=== PATIENT | female | born 1955 | race Caucasian/White ===

== ENCOUNTER 2016-07-10 18:16 | Inpatient (IN) | payer BC, OTHER ==
[2016-07-10] MEDS ORDERED: NS 0.9% 1000 ML* 1,000 ML IV ONE ×2 (19:19→22:12)
[2016-07-10] MEDS ORDERED: Acetaminophen TAB* 325 MG PO ONE ×2 (19:19→22:12)
[2016-07-10] MEDS ORDERED: Piperac/Tazob 3.375 gm in NS* 3.375 GM/100 ML BAG IVPB ONE (19:20)
[2016-07-10 19:38] LABS: Urine Bacteria Absent (Absent); Urine Bilirubin Negative (Negative); Urine Glucose Negative (Negative); Urine Nitrite Negative (Negative)
[2016-07-10 19:43] LABS: Hematocrit 41 % (35-47); Hemoglobin 13.6 g/dl (12.0-16.0); Mean Corpuscular HGB Conc 33 g/dl (31-36); Mean Corpuscular Hemoglobin 29 pg (27-31); Mean Corpuscular Volume 88 fL (80-97); Mean Platelet Volume 8 um3 (7.4-10.4); Red Blood Count 4.63 10^6/ul (4.0-5.4); Red Cell Distribution Width 13 % (10.5-15); White Blood Count 16.1 10^3/ul (3.5-10.8)
--- NOTE | 2016-07-10 19:52 | RAD ---
INDICATION: Fever COMPARISON: None TECHNIQUE: An AP portable view obtained at 1940 hours is submitted. FINDINGS: Bones/Soft Tissues: There are no acute bony findings. Cardiomediastinal: The cardiomediastinal silhouette is normal. Lungs: There are no infiltrates. Pleura: There are no pleural effusions. Other: None IMPRESSION: NO ACTIVE DISEASE.
[2016-07-10 20:00] LABS: Albumin 5.1 g/dL (3.2-5.2); BUN/Creatinine Ratio 14.3 (8-20); Calcium 10.3 mg/dL (8.6-10.3); EGFR African American 109.8 (>60); EGFR Non-African American 85.4 (>60); Globulin 3.1 g/dL (2-4); Potassium 3.4 mmol/L (3.5-5.0); Total Bilirubin 1.2 mg/dL (0.2-1.0); Total Protein 8.2 g/dL (6.4-8.9)
[2016-07-10 20:38] LABS: C Reactive Protein 29.91 mg/L (< 5.00)
[2016-07-10 22:01] LABS: Urine Bacteria Absent (Absent); Urine Bilirubin Negative (Negative); Urine Glucose Negative (Negative); Urine Nitrite Negative (Negative)
[2016-07-10] MEDS ORDERED: Ondansetron INJ* 2 MG/ML VIAL IV ONE (22:59)
[2016-07-10] MEDS ORDERED: Ketorolac INJ* 30 MG/ML 1 ML VIAL IV PUSH ONE (22:59)
[2016-07-10] MEDS ORDERED: NS 0.9% 1000 ML* 1,000 ML IV SCH (23:00)
[2016-07-10] MEDS ORDERED: oxyCODONE/Acetamin 5/325 MG* TAB PO ONE ×2 (23:18)
--- NOTE | 2016-07-10 23:20 | ED ---
Christiano Atowod Billy, scribed for Oscar Bermudez MD on 07/10/16 at 1918 . Complex/Multi-Sys Presentation - HPI Summary HPI Summary: Patient is a 61 year-old female coming to [facility] presenting with fever TMax 102F today. She also reports chills and diffuse myalgia. She had nausea without vomiting last night. Patient also reports passing a kidney stone this morning. - History Of Current Complaint Chief Complaint: EDGeneral Time Seen by Provider: 07/10/16 19:08 Hx Obtained From: Patient Onset/Duration: Gradual Onset, Lasting Hours, Still Present Timing: Constant Severity Currently: Moderate Severity Initially: Moderate Aggravating Factor(s): n/a Alleviating Factor(s): n/a Associated Signs And Symptoms: Positive: Fever, Other - diffuse myalgia, chills - Allergies/Home Medications Allergies/Adverse Reactions: Allergies Allergy/AdvReac Type Severity Reaction Status Date / Time Adhesive Tape Allergy Rash Verified 07/10/16 19:11 SEASONAL ALLERGY Allergy ITCHY Uncoded 07/10/16 19:11 WATERY EYES PMH/Surg Hx/FS Hx/Imm Hx Cardiovascular History: Reports: Hx Hypertension - STATES BORDERLINE History: Reports: Hx Kidney Stones - 35 yrs ago Musculoskeletal History: Reports: Hx Tendonitis - RIGHT ELBOW Sensory History: Reports: Hx Cataracts - BILATERAL, Hx Contacts or Glasses - GLASSES Denies: Hx Hearing Aid Opthamlomology History: Reports: Hx Cataracts - BILATERAL, Hx Contacts or Glasses - GLASSES Psychiatric History: Reports: Hx Anxiety - PRN MEDICATION FOR - Cancer History Hx Chemotherapy: No Hx Radiation Therapy: No - Surgical History Surgery Procedure, Year, and Place: SURGERY FOR KIDNEY STONE-1978. [place] [place] WISDOM TEETH EXTRACTION-1980 Hx Anesthesia Reactions: No - Immunization History Date of Tetanus Vaccine: unk Date of Influenza Vaccine: unk Infectious Disease History: No Infectious Disease History: Denies: Traveled Outside the [place] in Last 30 Days - Family History Known Family History: Positive: Hypertension - Social History Alcohol Use: Occasionally Substance Use Type: Reports: None Smoking Status (MU): Never Smoked Tobacco Have You Smoked in the Last Year: No Review of Systems Positive: Fever, Chills Positive: Nausea Positive: Myalgia All Other Systems Reviewed And Are Negative: Yes Physical Exam - Summary Physical Exam Summary: VITAL SIGNS: Reviewed. GENERAL: Patient is a well developed and nourished female who is lying comfortable in the stretcher. Patient is not in any acute respiratory distress. HEAD AND FACE: No signs of trauma. No ecchymosis, hematomas or skull depressions. No sinus tenderness. EYES: PERRLA, EOMI x 2, No injected conjunctiva, no nystagmus. EARS: Hearing grossly intact. Ear canals and tympanic membranes are within normal limits. MOUTH: Oropharynx within normal limits. NECK: Supple, trachea is midline, no adenopathy, no JVD, no carotid bruit, no c- spine tenderness, neck with full ROM. CHEST: Symmetric, no tenderness at palpation LUNGS: Clear to auscultation bilaterally. No wheezing or crackles. CVS: Regular rate and rhythm, S1 and S2 present, no murmurs or gallops appreciated. ABDOMEN: Soft, non-tender. No signs of distention. No rebound no guarding, and no masses palpated. Bowel sounds are normal. EXTREMITIES: FROM in all major joints, no edema, no cyanosis or clubbing. NEURO: Alert and oriented x 3. No acute neurological deficits. Speech is normal and follows commands. SKIN: Dry and warm Triage Information Reviewed: Yes Vital Signs On Initial Exam: Initial Vitals Temp Pulse Resp BP Pulse Ox 99.4 F 96 14 150/72 100 07/10/16 18:18 07/10/16 18:18 07/10/16 18:18 07/10/16 18:18 07/10/16 18:18 Vital Signs Reviewed: Yes - Garrison Coma Scale Coma Scale Total: 15 Diagnostics - Vital Signs Vital Signs Temp Pulse Resp BP Pulse Ox 07/10/16 18:18 99.4 F 96 14 150/72 100 - Laboratory Lab Results: Lab Results 07/10/16 07/10/16 07/10/16 Range/Units 19:15 19:30 19:30 WBC 16.1 H (3.5-10.8) 10^3/ul RBC 4.63 (4.0-5.4) 10^6/ul Hgb 13.6 (12.0-16.0) g/dl Hct 41 (35-47) % MCV 88 (80-97) fL MCH 29 (27-31) pg MCHC 33 (31-36) g/dl RDW 13 (10.5-15) % Plt Count 222 (150-450) 10^3/ul MPV 8 (7.4-10.4) um3 Neut % (Auto) 90.7 H (38-83) % Lymph % (Auto) 5.6 L (25-47) % Amelia % (Auto) 3.3 (1-9) % Eos % (Auto) 0.2 (0-6) % Baso % (Auto) 0.2 (0-2) % Absolute Neuts (auto) 14.6 H (1.5-7.7) 10^3/ul Absolute Lymphs (auto) 0.9 L (1.0-4.8) 10^3/ul Absolute Monos (auto) 0.5 (0-0.8) 10^3/ul Absolute Eos (auto) 0 (0-0.6) 10^3/ul Absolute Basos (auto) 0 (0-0.2) 10^3/ul Absolute Nucleated RBC 0 10^3/ul Nucleated RBC % 0 INR (Anticoag Therapy) 1.08 (0.89-1.11) APTT 30.6 (26.0-36.3) seconds Fibrinogen 429 H (110.8-404.3) mg/dL Sodium (133-145) mmol/L Potassium (3.5-5.0) mmol/L Chloride (101-111) mmol/L Carbon Dioxide (22-32) mmol/L Anion Gap (2-11) mmol/L BUN (6-24) mg/dL Creatinine (0.51-0.95) mg/dL Est GFR ( Amer) (>60) Est GFR (Non-Af Amer) (>60) BUN/Creatinine Ratio (8-20) Glucose (70-100) mg/dL Lactic Acid (0.5-2.0) mmol/L Calcium (8.6-10.3) mg/dL Total Bilirubin (0.2-1.0) mg/dL AST (13-39) U/L ALT (7-52) U/L Alkaline Phosphatase (34-104) U/L Troponin I (<0.04) ng/mL C-Reactive Protein (< 5.00) mg/L B-Natriuretic Peptide ( - 100) pg/mL Total Protein (6.4-8.9) g/dL Albumin (3.2-5.2) g/dL Globulin (2-4) g/dL Albumin/Globulin Ratio (1-3) Urine Color Straw Urine Appearance Clear Urine pH 7.0 (5-9) Ur Specific Carlisle 1.006 L (1.010-1.030) Urine Protein Negative (Negative) Urine Ketones 1+ H (Negative) Urine Blood 2+ H (Negative) Urine Nitrate Negative (Negative) Urine Bilirubin Negative (Negative) Urine Urobilinogen Negative (Negative) Ur Leukocyte Esterase 2+ H (Negative) Urine WBC (Auto) 2+(11-20/hpf) H (Absent) Urine RBC (Auto) 1+(3-5/hpf) H (Absent) Ur Squamous Epith Cells Present H (Absent) Urine Bacteria Absent (Absent) Urine Glucose Negative (Negative) 07/10/16 07/10/16 07/10/16 Range/Units 19:30 19:30 19:30 WBC (3.5-10.8) 10^3/ul RBC (4.0-5.4) 10^6/ul Hgb (12.0-16.0) g/dl Hct (35-47) % MCV (80-97) fL MCH (27-31) pg MCHC (31-36) g/dl RDW (10.5-15) % Plt Count (150-450) 10^3/ul MPV (7.4-10.4) um3 Neut % (Auto) (38-83) % Lymph % (Auto) (25-47) % Amelia % (Auto) (1-9) % Eos % (Auto) (0-6) % Baso % (Auto) (0-2) % Absolute Neuts (auto) (1.5-7.7) 10^3/ul Absolute Lymphs (auto) (1.0-4.8) 10^3/ul Absolute Monos (auto) (0-0.8) 10^3/ul Absolute Eos (auto) (0-0.6) 10^3/ul Absolute Basos (auto) (0-0.2) 10^3/ul Absolute Nucleated RBC 10^3/ul Nucleated RBC % INR (Anticoag Therapy) (0.89-1.11) APTT (26.0-36.3) seconds Fibrinogen (110.8-404.3) mg/dL Sodium 138 (133-145) mmol/L Potassium 3.4 L (3.5-5.0) mmol/L Chloride 99 L (101-111) mmol/L Carbon Dioxide 28 (22-32) mmol/L Anion Gap 11 (2-11) mmol/L BUN 10 (6-24) mg/dL Creatinine 0.70 (0.51-0.95) mg/dL Est GFR ( Amer) 109.8 (>60) Est GFR (Non-Af Amer) 85.4 (>60) BUN/Creatinine Ratio 14.3 (8-20) Glucose 116 H (70-100) mg/dL Lactic Acid 1.8 (0.5-2.0) mmol/L Calcium 10.3 (8.6-10.3) mg/dL Total Bilirubin 1.20 H (0.2-1.0) mg/dL AST 17 (13-39) U/L ALT 13 (7-52) U/L Alkaline Phosphatase 63 (34-104) U/L Troponin I 0.00 (<0.04) ng/mL C-Reactive Protein 29.91 H (< 5.00) mg/L B-Natriuretic Peptide 73 ( - 100) pg/mL Total Protein 8.2 (6.4-8.9) g/dL Albumin 5.1 (3.2-5.2) g/dL Globulin 3.1 (2-4) g/dL Albumin/Globulin Ratio 1.6 (1-3) Urine Color Urine Appearance Urine pH (5-9) Ur Specific Carlisle (1.010-1.030) Urine Protein (Negative) Urine Ketones (Negative) Urine Blood (Negative) Urine Nitrate (Negative) Urine Bilirubin (Negative) Urine Urobilinogen (Negative) Ur Leukocyte Esterase (Negative) Urine WBC (Auto) (Absent) Urine RBC (Auto) (Absent) Ur Squamous Epith Cells (Absent) Urine Bacteria (Absent) Urine Glucose (Negative) Result Diagrams: 07/10/16 19:30 07/10/16 19:30 Lab Statement: Any lab studies that have been ordered have been reviewed, and results considered in the medical decision making process. - Radiology CXR Xray Interpretation: No Acute Changes Radiology Interpretation Completed By: Radiologist Re-Evaluation - Re-Evaluation First Eval Re-Evaluation Time: 22:55 Comment: Labs and imaging reviewed and discussed with the patient. Plan for admission discussed, she is agreeable. Complex Multi-Symp Course/Dx Assessment/Plan: Patient is a 61 year-old female coming to [facility] presenting with fever TMax 102F today. She also reports chills and diffuse myalgia. She had nausea without vomiting last night. Patient also reports passing a kidney stone this morning. Bloodwork WNL except for WBC of 16.1, potassium of 3.4, CRP of 29.9. We obtained 2 samples for urine, and they were both contaminated. Therefore, I requested urine cultures. Meanwhile she was given IV fluids, started on Zosyn for SIRS and UTI and she was given Tylenol since she developed fever here in the ER. I discussed my physical exam findings with Dr. Lopez who accepted the patient for admission. She is hemodynamically stable, A&Ox3. - Diagnoses Differential Diagnoses/HQI/PQRI: Urinary Tract Infection Provider Diagnoses: SIRS (systemic inflammatory response syndrome), UTI vs Pyelonephritis - Physician Notifications Discussed Care Of Patient With: Dr. Lopez (hospitalist) @ 2250: accepts admission. Discharge - Discharge Plan Condition: Stable Disposition: ADMITTED TO [facility] Referrals: Bryant Sykes MD [Primary Care Provider] - The documentation as recorded by the Christiano anderson Billy accurately reflects the service I personally performed and the decisions made by me, Oscar Bermudez MD.
[2016-07-11] MEDS ORDERED: Acetaminophen SUPP* 650 MG SUPP PR PRN (00:13)
[2016-07-11] MEDS ORDERED: NS 0.9% 1000 ML* 1,000 ML IV SCH ×2 (00:15→09:54)
[2016-07-11] MEDS: Piperac/Tazob 3.375 gm in NS* 3.375 GM/100 ML BAG IVPB SCH ×2 (01:47→08:38)
[2016-07-11] MEDS: Ondansetron INJ* 2 MG/ML VIAL IV PRN ×2 (05:29→14:53)
[2016-07-11] MEDS: Heparin VIAL(*) 5000 UNITS/ML VIAL (FIVE THOUSAND) SUBCUT SCH ×3 (06:00→21:50)
[2016-07-11] MEDS ORDERED: ALPRAZolam TAB* 0.5 MG PO ONE (06:00)
[2016-07-11 07:01] LABS: Hematocrit 32 % (35-47); Hemoglobin 10.8 g/dl (12.0-16.0); Mean Corpuscular HGB Conc 34 g/dl (31-36); Mean Corpuscular Hemoglobin 30 pg (27-31); Mean Corpuscular Volume 88 fL (80-97); Mean Platelet Volume 8 um3 (7.4-10.4); Red Cell Distribution Width 13 % (10.5-15); White Blood Count 14.7 10^3/ul (3.5-10.8)
[2016-07-11] MEDS ORDERED: NS 0.9% 1000 ML* 1,000 ML IV ONE (08:31)
[2016-07-11] MEDS: Cholecalciferol TAB* 1000 UNITS PO SCH (08:41)
[2016-07-11] MEDS: Acetaminophen TAB* 325 MG PO PRN ×3 (08:41→22:49)
[2016-07-11] MEDS: Metoprolol Succinate XL TAB* 25 MG PO SCH (08:42)
[2016-07-11] MEDS ORDERED: Hydrochlorothiazide TAB* 25 MG PO SCH (09:00)
[2016-07-11] MEDS ORDERED: Metoprolol Succinate XL TAB* 25 MG PO SCH (09:00)
--- NOTE | 2016-07-11 10:29 | RAD ---
INDICATION: Sepsis. Obstruction. Appendicitis COMPARISON: None TECHNIQUE: Longitudinal and transverse scans of the kidneys were obtained. FINDINGS: Kidneys: The kidneys are normal in size and echogenicity. No renal masses, calculi, or hydronephrosis is seen. The right kidney measures 13.3 x 5.1 x 4.3 cm and the left kidney 11.3 x 4.3 x 4.3 cm. Other: None IMPRESSION: NORMAL STUDY.
[2016-07-11] MEDS: NS 0.9% 1000 ML* 2,000 ML IV ONE ×2 (12:06→12:53)
--- NOTE | 2016-07-11 12:59 | HP ---
HISTORY AND PHYSICAL: DATE OF ADMISSION: 07/11/16 CHIEF COMPLAINT: Fever and chills. HISTORY OF PRESENT ILLNESS: The patient is a 61-year-old woman, who said that last night she had severe pain in her right side, which was unbearable. She has had many kidney stones and dealing with this. She was pacing the floor, and at about midnight, the pain symptom let up and she was able to sleep. At 10 a.m. this morning, she got up and passed a kidney stone, so she thought she was over the problem. However, subsequent to that, she has developed fevers and chills. She had no other symptoms, but states that this is similar to when she was septic from an urinary tract infection in the past. She denies any burning on urination. She did have some nausea and vomiting. In the ED, the patient was found to have a temperature of 103.8 degrees. The patient had no chest pain, shortness of breath, or abdominal pain. PAST MEDICAL HISTORY: Significant for: 1. Kidney stones. 2. Palpitations. PAST SURGICAL HISTORY: Surgery to remove the kidney stones years ago, lithotripsy 2 years ago. CURRENT MEDICATIONS: 1. Hydrochlorothiazide 25 mg daily. 2. Metoprolol succinate 25 mg in the morning. 3. Vitamin D 1000 units daily. 4. Tylenol 500 mg daily. FAMILY HISTORY: Mother at 90 of CHF. Father is alive at 96 and has diabetes. SOCIAL HISTORY: No tobacco, alcohol, or recreational drug use. She is retired. She is . Her Andi Sousa is her healthcare proxy. She has one son. REVIEW OF SYSTEMS: A 14-point review of systems is completed with the patient. All pertinent positives and negatives are in the history of present illness, otherwise, negative. PHYSICAL EXAMINATION GENERAL: A pleasant woman lying in bed in no acute distress. VITAL SIGNS: Temperature 98.6 degrees at this time, T-max 103.8, heart rate 107 beats per minute, respiratory rate 20 breaths per minute, pulse ox 98% on room air, blood pressure 112/60. HEENT: Normocephalic, atraumatic. Pupils are equal, round, and reactive to light. Moist mucous membranes. NECK: Supple. No JVD, bruits, palpable thyroid, or lymphadenopathy. LUNGS: Clear to auscultation and percussion bilaterally. HEART: S1 and S2 appreciated. Regular rate and rhythm. No murmurs, gallops, or rubs. ABDOMEN: Positive bowel sounds in all 4 quadrants. Soft, nontender, and nondistended. No hepatosplenomegaly. EXTREMITIES: No cyanosis, clubbing, or edema. +2 peripheral pulses bilaterally. NEUROLOGIC: Alert and oriented x3. Moves all extremities. SKIN: No distinct rashes or abnormalities. DIAGNOSTIC STUDIES/LAB DATA: White count is 16.1, hemoglobin 13.6, hematocrit 41, platelets 222, absolute neutrophils 14.6. Sodium 138, potassium 3.4, chloride 99, CO2 of 28, BUN 10, creatinine 0.70, glucose 116, CRP 29.91. UA shows +2 leukocyte esterase, +2 wbc's. Influenza is negative. Chest x-ray was interpreted by Radiology as no active disease. ASSESSMENT AND PLAN: 1. Likely pyelonephritis. The patient has already passed a stone. Start Zosyn 3.375 mg IV with infusion protocol. Normal saline 100 mL an hour. The patient should hopefully rapidly improved. 2. Hypertension. Stable. Continue hydrochlorothiazide and metoprolol. 3. Fluids, electrolytes, nutrition. Regular diet. 4. Deep venous thrombosis prophylaxis. Heparin subcu. 5. The patient is a full code. TIME SPENT: Over 75 minutes were spent on this H and P; more than 40 minutes of which were spent in direct [id number] contact with the patient in evaluation, physical exam, counseling, and coordination of care. CC: Dr. Sykes; Dr. Fernandez * [id number]/CPS #: [id number] MTDD
[2016-07-11] MEDS: Morphine INJ* 2 MG/ML 1 ML CARPUJECT IV PRN ×2 (14:15→22:53)
--- NOTE | 2016-07-11 14:39 | PN ---
Subjective Date of Service: 07/11/16 Interval History: HOSPITALIST PROGRESS NOTE Patient seen and examined at bedside. She was seen earlier today and re-evaluated now. Feels better, denies abdominal or flank pain at this time. No N/V. Family History: Unchanged from Admission Social History: Unchanged from Admission Past Medical History: Unchanged from Admission Objective Active Medications: Acetaminophen (Tylenol Supp*) 650 mg DE Q4H PRN PRN Reason: FEVER/PAIN Acetaminophen (Tylenol Tab*) 650 mg PO Q4H PRN PRN Reason: FEVER/PAIN Last Admin: 07/11/16 08:41 Dose: 650 mg Cholecalciferol (Vitamin D Tab*) 1,000 units PO DAILY [facility] Last Admin: 07/11/16 08:41 Dose: 1,000 units Heparin Sodium (Porcine) (Heparin Vial(*)) 5,000 units SUBCUT Q8HR [facility] Last Admin: 07/11/16 14:12 Dose: 5,000 units Sodium Chloride (Ns 0.9% 1000 Ml*) 1,000 mls @ 175 mls/hr IV PER [facility] Piperacillin Sod/Tazobactam Sod (Zosyn 3.375 Gm In Ns Premix*) 3.375 gm in 100 mls @ 25 mls/hr IVPB Q8H [facility] Last Admin: 07/11/16 08:38 Dose: 25 mls/hr Sodium Chloride (Ns 0.9% 1000 Ml*) 1,000 mls @ 200 mls/hr IV PER [facility] Last Admin: 07/11/16 14:12 Dose: 200 mls/hr Metoprolol Succinate (Toprol Xl Tab*) 25 mg PO QAM [facility] Last Admin: 07/11/16 08:42 Dose: Not Given Morphine Sulfate (Morphine Inj (Syringe)*) 2 mg IV Q2H PRN PRN Reason: PAIN Last Admin: 07/11/16 14:15 Dose: 2 mg Ondansetron HCl (Zofran Inj*) 4 mg IV Q4H PRN PRN Reason: NAUSEA Last Admin: 07/11/16 05:29 Dose: 4 mg Vital Signs 07/11/16 07/11/16 09:54 14:15 Temperature 100.5 F Pulse Rate 101 Respiratory 18 Rate Blood Pressure 103/47 (mmHg) O2 Sat by Pulse 92 Oximetry Oxygen Devices in Use Now: None Appearance: Pleasant lady sitting up in bed in NAD. Eyes: No Scleral Icterus Ears/Nose/Mouth/Throat: Mucous Membranes Moist Neck: Trachea Midline Respiratory: Symmetrical Chest Expansion and Respiratory Effort, Clear to Auscultation Cardiovascular: NL Sounds; No Murmurs; No JVD, RRR Abdominal: NL Sounds; No Tenderness; No Distention, - - Right CVAT Extremities: No Edema Neurological: Alert and Oriented x 3, NL Muscle Strength and Tone Lines/Tubes/Other Access: Clean, Dry and Intact Peripheral IV Nutrition: Taking PO's Result Diagrams: 07/11/16 06:39 07/10/16 19:30 Assess/Plan/Problems-Billing Assessment: Mrs. Sousa is a 61yo F with PMH of nephrolithiasis who presents to ED with sepsis secondary to pyelonephritis. - Patient Problems (1) Sepsis Comment: - Patient met sepsis criteria with fever, tachycardia, leukocytosis. - Source is pyelnophritis. - Continue aggressive IVF resuscitation. (2) Pyelonephritis Comment: - Renal US was negative for hydro. - Will switch to Ceftriaxone. - Follow cultures. (3) Nephrolithiasis Comment: - Patient passed a stone yesterday. - US didn't show nephrolithiasis. (4) DVT prophylaxis Comment: - SQ heparin. (5) Full code status Status and Disposition: Inpatient for management of sepsis and pyelonephritis.
--- NOTE | 2016-07-11 15:14 | PN ---
Hospitalist Progress Note HOSPITALIST ADDENDUM Called by RN as patient is febrile, has shaking chills, is vomiting, BP is still on the lower side and she's now dyspneic requiring 2 liters of O2. Will transfer to ICU. Check CxR, repeat blood cultures, continue Ceftriaxone and add Gentamicin. Critical care consult requested. Will continue to monitor closely.
[2016-07-11] MEDS ORDERED: Gentamicin ADULT (*) 120 MG in NS 0.9% 100 ML* 100 ML IVPB ONE (15:30)
--- NOTE | 2016-07-11 15:47 | RAD ---
INDICATION: Short of breath. Sepsis. Hypoxia. COMPARISON: July 10, 2016 TECHNIQUE: An AP portable view obtained at 1535 hours is submitted. FINDINGS: Bones/Soft Tissues: There are no acute bony findings. Cardiomediastinal: The cardiomediastinal silhouette is normal. Lungs: There are developing bibasilar infiltrates. The interstitium appears more prominent suggesting interstitial congestion. Pleura: There are no pleural effusions. Other: None IMPRESSION: SUSPECT DEVELOPING INTERSTITIAL CONGESTION WITH EARLY BIBASILAR INFILTRATIVE CHANGE
[2016-07-11 16:01] LABS: Albumin 3.7 g/dL (3.2-5.2); BUN/Creatinine Ratio 13.5 (8-20); Calcium 8.8 mg/dL (8.6-10.3); EGFR Non-African American 80.1 (>60); Globulin 2.7 g/dL (2-4); Potassium 3.3 mmol/L (3.5-5.0); Total Bilirubin 0.8 mg/dL (0.2-1.0); Total Protein 6.4 g/dL (6.4-8.9)
[2016-07-11 16:06] LABS: Hematocrit 30 % (35-47); Mean Corpuscular HGB Conc 33 g/dl (31-36); Mean Corpuscular Hemoglobin 30 pg (27-31); Mean Corpuscular Volume 90 fL (80-97); Mean Platelet Volume 8 um3 (7.4-10.4); Red Blood Count 3.37 10^6/ul (4.0-5.4); Red Cell Distribution Width 13 % (10.5-15); White Blood Count 12.5 10^3/ul (3.5-10.8)
[2016-07-11] MEDS: cefTRIAXone VIAL(*) 1,000 MG in NS 0.9% 50 ML* 50 ML IVPB SCH (16:10)
[2016-07-11] MEDS: KCL 10 MEQ/50 ML IVPREMIX* 10 MEQ/50 ML BAG IV SCH ×3 (17:54→20:39)
[2016-07-11] MEDS: NS 0.9% 1000 ML* 1,000 ML IV SCH (20:23)
[2016-07-12] MEDS: NS 0.9% 1000 ML* 1,000 ML IV SCH ×2 (02:56→16:01)
[2016-07-12 05:12] LABS: Hematocrit 28 % (35-47); Hemoglobin 9.3 g/dl (12.0-16.0); Mean Corpuscular HGB Conc 33 g/dl (31-36); Mean Corpuscular Hemoglobin 30 pg (27-31); Mean Corpuscular Volume 90 fL (80-97); Mean Platelet Volume 8 um3 (7.4-10.4); Red Blood Count 3.13 10^6/ul (4.0-5.4); Red Cell Distribution Width 14 % (10.5-15); White Blood Count 10.8 10^3/ul (3.5-10.8)
[2016-07-12 05:21] LABS: Comments Flag Yes
[2016-07-12 05:24] LABS: BUN/Creatinine Ratio 14.3 (8-20); C Reactive Protein 176.96 mg/L (< 5.00); EGFR Non-African American 110.4 (>60); Potassium 3.4 mmol/L (3.5-5.0)
[2016-07-12] MEDS: Heparin VIAL(*) 5000 UNITS/ML VIAL (FIVE THOUSAND) SUBCUT SCH ×3 (05:36→21:45)
[2016-07-12 08:08] LABS: Magnesium 1.6 mg/dL (1.9-2.7)
[2016-07-12] MEDS ORDERED: Magnesium Sulfate IV* 3 GM in NS 0.9% 100 ML* 100 ML IVPB ONE (08:11)
[2016-07-12] MEDS: Cholecalciferol TAB* 1000 UNITS PO SCH (09:24)
--- NOTE | 2016-07-12 09:49 | RAD ---
CLINICAL HISTORY: Right flank pain with clinical signs of sepsis COMPARISON: None TECHNIQUE: Noncontrast CT examination of the abdomen and pelvis from the lung bases through the initial tuberosities. FINDINGS: VISUALIZED LUNG BASES: There is a small right pleural effusion. There are patchy densities at the bilateral lung bases with air bronchograms in the dependent-most portion of the right lower lobe. There is a small pericardial effusion. ABDOMEN AND PELVIS: Evaluation of the solid organs and vasculature is limited without intravenous contrast. The liver, spleen, pancreas and adrenal glands are grossly normal in appearance. There is pericholecystic fluid. There are both hyperattenuating and fat density stones in the gallbladder lumen. There are several renal calculi in the right collecting system, the largest measuring just under 6 mm in greatest axial dimension. There is mild right hydronephrosis. There are no renal calculi seen in the bilateral ureters, ureterovesical junctions or in the urinary bladder lumen. There is nondependent gas in the bladder lumen. Evaluation of the gastrointestinal tract is limited in the absence of oral contrast. The small and large bowel are not distended. The 6 mm appendix with gas in the lumen may be identified best in the coronal plane (image 29 of 92). There is scattered peritoneal ascites The uterus is heterogeneous and lobular in contour. The abdominal aorta and iliac arteries are normal in course and diameter. Degenerative changes include multilevel loss of intervertebral disc height involving the lower thoracic and lumbar spine.There are no sinister bone lesions. IMPRESSION: 1. Depending on the clinical setting consolidation seen at the bilateral lower lobes could represent pneumonia versus atelectasis. 2. There are mixed attenuation gallstones with pericholecystic fluid. If the patient is exhibiting specifically right upper quadrant pain and other signs and symptoms of cholecystitis further characterization can be made with ultrasound of the gallbladder. 3. Multiple right kidney renal calculi with mild hydronephrosis without identification of an obstructing stone in the right ureter, ureterovesical junction or in the urinary bladder. There is gas in the nondependent portion of the urinary bladder. These correlate to recent catheterization. 4. The lobular and irregular uterus is incompletely evaluated on this CT examination. If clinically warranted superior characterization of the female pelvic adnexa can be made with pelvic ultrasound. 5. Additional chronic and degenerative changes as described in the body of the report.
[2016-07-12] MEDS: KCL 10 MEQ/50 ML IVPREMIX* 10 MEQ/50 ML BAG IV SCH ×3 (10:18→13:56)
[2016-07-12] MEDS: Docusate CAP* 100 MG PO SCH ×2 (13:56→21:36)
[2016-07-12] MEDS: Metoprolol Succinate XL TAB* 25 MG PO SCH (13:56)
--- NOTE | 2016-07-12 14:51 | PN ---
Subjective Date of Service: 07/12/16 Interval History: HOSPITALIST PROGRESS NOTE Patient seen and examined at bedside. She feels better this morning, still had shaking chills last night, but now improved. Mild right flank pain, no more nausea or vomiting. Family History: Unchanged from Admission Social History: Unchanged from Admission Past Medical History: Unchanged from Admission Objective Active Medications: Acetaminophen (Tylenol Supp*) 650 mg OK Q4H PRN PRN Reason: FEVER/PAIN Acetaminophen (Tylenol Tab*) 650 mg PO Q4H PRN PRN Reason: FEVER/PAIN Last Admin: 07/11/16 22:49 Dose: 650 mg Cholecalciferol (Vitamin D Tab*) 1,000 units PO DAILY [facility] Last Admin: 07/12/16 09:24 Dose: 1,000 units Docusate Sodium (Colace Cap*) 100 mg PO BID [facility] Last Admin: 07/12/16 13:56 Dose: Not Given Heparin Sodium (Porcine) (Heparin Vial(*)) 5,000 units SUBCUT Q8HR [facility] Last Admin: 07/12/16 05:36 Dose: 5,000 units Ceftriaxone Sodium 1,000 mg/ (Sodium Chloride) 50 mls @ 200 mls/hr IVPB Q24H [facility] Last Admin: 07/11/16 16:10 Dose: 200 mls/hr Sodium Chloride (Ns 0.9% 1000 Ml*) 1,000 mls @ 150 mls/hr IV PER RATE [facility] Last Admin: 07/12/16 02:56 Dose: 150 mls/hr Gentamicin Sulfate 120 mg/ (Sodium Chloride) 103 mls @ 200 mls/hr IVPB ONCE ONE Stop: 07/12/16 16:00 Metoprolol Succinate (Toprol Xl Tab*) 25 mg PO QAM [facility] Last Admin: 07/12/16 13:56 Dose: Not Given Morphine Sulfate (Morphine Inj (Syringe)*) 2 mg IV Q2H PRN PRN Reason: PAIN Last Admin: 07/11/16 22:53 Dose: 2 mg Ondansetron HCl (Zofran Inj*) 4 mg IV Q4H PRN PRN Reason: NAUSEA Last Admin: 07/11/16 14:53 Dose: 4 mg Vital Signs 07/12/16 07/12/16 07/12/16 11:00 12:00 12:30 Temperature 100.1 F Pulse Rate 95 74 Respiratory 24 23 18 Rate Blood Pressure 115/55 107/53 (mmHg) O2 Sat by Pulse 98 97 Oximetry Oxygen Devices in Use Now: None Appearance: Pleasant lady sitting up in bed in NAD. Eyes: No Scleral Icterus Ears/Nose/Mouth/Throat: Mucous Membranes Moist Neck: Trachea Midline Respiratory: Symmetrical Chest Expansion and Respiratory Effort, Clear to Auscultation Cardiovascular: NL Sounds; No Murmurs; No JVD, RRR Abdominal: NL Sounds; No Tenderness; No Distention, - - Mild Extremities: No Edema Neurological: Alert and Oriented x 3, NL Muscle Strength and Tone Lines/Tubes/Other Access: Clean, Dry and Intact Peripheral IV Nutrition: Taking PO's Result Diagrams: 07/12/16 04:50 07/12/16 04:50 Assess/Plan/Problems-Billing Assessment: Mrs. Sousa is a 61yo F with PMH of nephrolithiasis who presents to ED with sepsis secondary to pyelonephritis. - Patient Problems (1) Sepsis Comment: - Patient met sepsis criteria with fever, tachycardia, leukocytosis. - Source is pyelnophritis. - Continue IVF. (2) Pyelonephritis Comment: - Renal US was negative for hydro. - CT showed mild right hydro and gas in the bladder. - Continue Ceftriaxone. - Blood cultures growing Enterococcus faecalis. Urine culture show no growth so far. - D/w Urology (Dr. Fernandez) - recommended renal US with full bladder tomorrow and check ureteral jets. (3) Nephrolithiasis Comment: - Patient passed a stone day prior to admission. (4) Enterococcus faecalis infection Comment: - Source is pyelonephritis. - Continue Ceftriaxone. - ID consult. (5) DVT prophylaxis Comment: - SQ heparin. (6) Full code status Status and Disposition: Inpatient for management of sepsis and pyelonephritis.
[2016-07-12] MEDS ORDERED: Gentamicin ADULT (*) 120 MG in NS 0.9% 100 ML* 100 ML IVPB ONE (15:30)
[2016-07-12] MEDS: Ondansetron INJ* 2 MG/ML VIAL IV PRN (15:49)
[2016-07-12] MEDS ORDERED: Vancomycin(*) 1,250 MG in NS 0.9% 250 ML* 250 ML IVPB ONE (16:00)
[2016-07-12] MEDS ORDERED: Vancomycin(*) 1,000 MG in NS 0.9% 250 ML* 250 ML IVPB ONE (16:00)
[2016-07-12] MEDS: Morphine INJ* 2 MG/ML 1 ML CARPUJECT IV PRN (16:02)
[2016-07-12] MEDS: cefTRIAXone VIAL(*) 1,000 MG in NS 0.9% 50 ML* 50 ML IVPB SCH (16:03)
[2016-07-12] MEDS ORDERED: Vancomycin per Pharmacy* NOTE FOLLOW UP PRN (16:29)
[2016-07-13] MEDS: Vancomycin(*) 1,000 MG in NS 0.9% 250 ML* 250 ML IVPB SCH ×2 (00:17→08:08)
[2016-07-13] MEDS: Acetaminophen TAB* 325 MG PO PRN (00:23)
[2016-07-13] MEDS: NS 0.9% 1000 ML* 1,000 ML IV SCH (02:13)
[2016-07-13] MEDS: Heparin VIAL(*) 5000 UNITS/ML VIAL (FIVE THOUSAND) SUBCUT SCH ×3 (05:58→21:36)
[2016-07-13 06:42] LABS: Hematocrit 26 % (35-47); Mean Corpuscular HGB Conc 34 g/dl (31-36); Mean Corpuscular Hemoglobin 30 pg (27-31); Mean Corpuscular Volume 89 fL (80-97); Mean Platelet Volume 8 um3 (7.4-10.4); Red Blood Count 2.96 10^6/ul (4.0-5.4); Red Cell Distribution Width 13 % (10.5-15); White Blood Count 6.9 10^3/ul (3.5-10.8)
[2016-07-13 07:00] LABS: Albumin 2.8 g/dL (3.2-5.2); C Reactive Protein 141.59 mg/L (< 5.00); Calcium 8.2 mg/dL (8.6-10.3); EGFR African American 161.9 (>60); EGFR Non-African American 125.9 (>60); Globulin 2.1 g/dL (2-4); Potassium 3.5 mmol/L (3.5-5.0); Total Bilirubin 0.4 mg/dL (0.2-1.0); Total Protein 4.9 g/dL (6.4-8.9)
[2016-07-13] MEDS: Docusate CAP* 100 MG PO SCH ×2 (08:03→20:42)
[2016-07-13] MEDS: Cholecalciferol TAB* 1000 UNITS PO SCH (08:08)
[2016-07-13] MEDS: Metoprolol Succinate XL TAB* 25 MG PO SCH (08:14)
[2016-07-13] MEDS: Simethicone TAB* 80 MG TAB.CHEW PO PRN (11:20)
--- NOTE | 2016-07-13 12:02 | RAD ---
Indication: Nephrolithiasis. Pyelonephritis. Comparison: July 12, 2016 CT. Technique: Ultrasound kidneys and urinary bladder. Report: 12.9 x 4.3 x 4.3 cm RIGHT kidney. 12.2 x 5.2 x 3.9 cm LEFT kidney. Normal bilateral renal cortical echogenicity. Several echogenic shadowing foci at the RIGHT kidney consistent with nephrolithiasis corresponding with the prior CT finding including 5 mm stone at the midpole and 8 mm stone at the inferior pole. Negative for hydronephrosis. Negative for focal renal lesions. Negative for perinephric fluid. Prevoid urinary bladder volume estimated at 276 mL. Normal 1.3 mm bladder wall. Bilateral ureteral jets documented. Post void residual volume estimated at 137 mL. IMPRESSION: 1. Nonobstructing calyceal stones of the RIGHT kidney. 2. Negative for hydronephrosis. 3. Bilateral ureteral jets documented. 4. Significant post void residual volume documented in the urinary bladder.
--- NOTE | 2016-07-13 13:58 | PN ---
Subjective Date of Service: 07/13/16 Interval History: HOSPITALIST PROGRESS NOTE Patient seen and examined at bedside. She feels better today. Right flank pain, nausea, vomiting are improved. Had mild chills early last night, but slept well. Family History: Unchanged from Admission Social History: Unchanged from Admission Past Medical History: Unchanged from Admission Objective Active Medications: Acetaminophen (Tylenol Supp*) 650 mg HI Q4H PRN PRN Reason: FEVER/PAIN Acetaminophen (Tylenol Tab*) 650 mg PO Q4H PRN PRN Reason: FEVER/PAIN Last Admin: 07/13/16 00:23 Dose: 650 mg Cholecalciferol (Vitamin D Tab*) 1,000 units PO DAILY [facility] Last Admin: 07/13/16 08:08 Dose: 1,000 units Docusate Sodium (Colace Cap*) 100 mg PO BID [facility] Last Admin: 07/13/16 08:03 Dose: Not Given Heparin Sodium (Porcine) (Heparin Vial(*)) 5,000 units SUBCUT Q8HR [facility] Last Admin: 07/13/16 05:58 Dose: 5,000 units Vancomycin HCl 1,000 mg/ (Sodium Chloride) 250 mls @ 166.667 mls/hr IVPB Q8H [facility] Last Admin: 07/13/16 08:08 Dose: 166.667 mls/hr Metoprolol Succinate (Toprol Xl Tab*) 25 mg PO QAM [facility] Last Admin: 07/13/16 08:14 Dose: 25 mg Morphine Sulfate (Morphine Inj (Syringe)*) 2 mg IV Q2H PRN PRN Reason: PAIN Last Admin: 07/12/16 16:02 Dose: 2 mg Ondansetron HCl (Zofran Inj*) 4 mg IV Q4H PRN PRN Reason: NAUSEA Last Admin: 07/12/16 15:49 Dose: 4 mg Pharmacy Consult (Vancomycin Per Pharmacy*) 1 note FOLLOW UP . PRN PRN Reason: PER PROTOCOL Pharmacy Profile Note (Vancomycin Trough Check) 1 note FOLLOW UP 1600 ONE Stop: 07/13/16 16:01 Simethicone (Mylicon*) 80 mg PO Q6H PRN PRN Reason: Gas/bloating Last Admin: 07/13/16 11:20 Dose: 80 mg Vital Signs 01/16/17 01/16/17 01/17/17 22:16 23:05 03:45 Temperature 99.5 F 98.1 F Pulse Rate 101 84 Respiratory 18 16 16 Rate Blood Pressure 128/56 125/60 (mmHg) O2 Sat by Pulse 92 86 Oximetry Oxygen Devices in Use Now: None Appearance: Pleasant lady sitting up in bed in NAD. Eyes: No Scleral Icterus Ears/Nose/Mouth/Throat: Mucous Membranes Moist Neck: Trachea Midline Respiratory: Symmetrical Chest Expansion and Respiratory Effort, Clear to Auscultation Cardiovascular: NL Sounds; No Murmurs; No JVD, RRR Abdominal: NL Sounds; No Tenderness; No Distention, - - Mild CVA tenderness Extremities: No Edema Neurological: Alert and Oriented x 3, NL Muscle Strength and Tone Lines/Tubes/Other Access: Clean, Dry and Intact Peripheral IV Nutrition: Taking PO's Result Diagrams: 07/13/16 05:58 07/13/16 05:58 Assess/Plan/Problems-Billing Assessment: Mrs. Sousa is a 61yo F with PMH of nephrolithiasis who presents to ED with sepsis secondary to pyelonephritis. - Patient Problems (1) Sepsis Comment: - Patient met sepsis criteria with fever, tachycardia, leukocytosis. - Source is pyelnophritis. - D/c IVF. (2) Pyelonephritis Comment: - Renal US was negative for hydro. - CT showed mild right hydro and gas in the bladder (straight cath attempted in the ED). - Blood cultures growing Enterococcus faecalis. Urine culture show no growth so far. - D/w ID - recommended Vancomycin. (3) Nephrolithiasis Comment: - Patient passed a stone day prior to admission. (4) Enterococcus faecalis infection Comment: - Source is pyelonephritis. - Continue Vancomycin. - ID consult. (5) DVT prophylaxis Comment: - SQ heparin. (6) Full code status Status and Disposition: Inpatient for management of sepsis and pyelonephritis.
[2016-07-13] MEDS ORDERED: Piperac/Tazob 3.375 gm in NS* 3.375 GM/100 ML BAG IVPB ONE (16:00)
[2016-07-13] MEDS ORDERED: Vancomycin Trough Check NOTE FOLLOW UP ONE (16:00)
[2016-07-13] MEDS: Piperac/Tazob 3.375 gm in NS* 3.375 GM/100 ML BAG IVPB SCH (20:36)
--- NOTE | 2016-07-13 20:46 | CONS ---
CONSULTATION REPORT: DATE OF CONSULT: 07/13/16 REQUESTING PHYSICIAN: Dr. Dwyer. CONSULTING SERVICE: Infectious Disease. REASON FOR CONSULT: Enterococcal bacteremia. IMPRESSION: 1. Enterococcus faecalis in her blood cultures, which is usually associated with GI tract related issues and some urinary tract abnormalities, but that is more common in men with enlarged prostate which clearly is not an issue here. Her urine culture was negative. As for GI related infections, Enterococcus is commonly isolated in gallbladder disease. On CT scan of the abdomen and pelvis , she does have pericholecystic fluid and gallstones. She did have elevated transaminases and alkaline phosphatase for a day after admission. She had right flank upper quadrant pain. Her symptoms had been attributed to nephrolithiasis and passing of a stone on Tuesday. She then had rigors and worsening right-sided abdominal pain. Overall, I think the differential diagnosis does include cholecystitis and I think microbiologically, it is at least as likely an explanation as relation to nephrolithiasis and temporary ureteral obstruction. 2. History of nephrolithiasis, treated with lithotripsy in the past. 3. Hypertension. RECOMMENDATIONS: Stop vancomycin and start Zosyn 3.375 g every 6 hours which would cover Enterococcus faecalis as well as other usual gallbladder soraya. As long as she is continuing to improve, we can change her to oral antibiotics to finish a course of treatment. She should have a evaluation with General Surgery regarding the status of her gallbladder to include ultrasound to be sure we do not miss gall bladder disease while focusing on her urinary tract abnormalities. HISTORY OF PRESENT ILLNESS: This is a 61-year-old woman with a history of nephrolithiasis, admitted with fever and rigors. She had been well until last Tuesday. She developed right flank pain which was a little bit higher than her usual kidney stone symptoms, but then on Tuesday evening, she did end up passing a kidney stone. In the next 2 or 3 days, she developed fevers, chills, rigors, and anorexia. Because her symptoms persisted as did the right upper quadrant and right lateral abdominal pain, she came to the ER on 07/10/16. She had a white blood cell count of 16,000. She was febrile at 40 degree celsius. She was hypotensive in the 90s and tachycardic to the 120s. She had volume resuscitation, was started on Zosyn. Blood cultures, urine cultures were sent. CT of the abdomen and pelvis was done, which showed bibasilar atelectasis, pericholecystic fluid, gallstones, multiple right kidney calculi with mild hydronephrosis with obstructing stones, a gas in the nondependent portion of the urinary bladder. Her white count decreased with antibiotics. Her abdominal pain, chills, and rigors improved. Her blood culture came back 1 of 4 bottles Enterococcus faecalis. Urine culture was negative. Followup cultures on 07/11/16 of the blood were negative. The urinalysis on admission showed blood, leukocyte esterase. She has not had any other recent infections. She passes kidney stones regularly. PAST MEDICAL HISTORY: 1. Nephrolithiasis, history of lithotripsy. 2. Palpitations. 3. Surgery to remove kidney stones. ALLERGIES: No known drug allergies. MEDICATIONS: 1. Tylenol. 2. Cholecalciferol. 3. Docusate. 4. Heparins subcutaneous injection. 5. Zofran. 6. Vancomycin. FAMILY HISTORY: No recurrent infections. SOCIAL HISTORY: She lives in [place], [place]. She has no travel or sick contacts. REVIEW OF SYSTEMS: All negative except as noted above. PHYSICAL EXAM: Vital Signs: Temperature is 37, heart rate 80, respiratory rate 16, blood pressure 130/70, O2 sat 98% on room air. In general, she is awake, in no acute distress. Neurologically, she is oriented x3. Follows all commands. Moves all extremities. Neck: Neck is supple without nuchal rigidity. HEENT: There is no conjunctival hemorrhage. Oropharynx without lesions. Heart: Regular rate and rhythm without murmurs, rubs, or gallops. Lungs are clear to auscultation bilaterally. Abdomen: Soft, mildly distended, nontender. There is no rebound, tenderness. There is no right upper quadrant or flank tenderness to palpation. There are bowel sounds present. Skin: There are no rashes or splinter hemorrhages. Musculoskeletal: There is no spine tenderness to palpation or joint synovitis. DIAGNOSTIC STUDIES/LAB DATA: White blood cell count 7, hemoglobin 9, platelets 130. Creatinine is 0.5. CRP 150. ALT 46, down from 90. Please see impressions and recommendations as outlined above, which I have discussed with Dr. Dwyer. Thanks for asking me to see Ms. Sousa in consultation. [id number]/[facility] #: [id number] [facility]
[2016-07-13] MEDS: Hemorrhoidal OINT PR PRN (21:36)
--- NOTE | 2016-07-13 22:17 | CONS ---
SURGICAL CONSULT NOTE: DATE OF CONSULT: 07/13/16 ATTENDING SURGEON: Jaswinder Higgins MD CHIEF COMPLAINT: Gallstones. HISTORY OF PRESENT ILLNESS: This is a 61-year-old female with long history of nephrolithiasis (always on the right side) who experienced right flank pain on Tuesday night and subsequently passed a stone on the morning of 07/10/16. Subsequently, she developed fever and chills, which continued through the day and she then presented to the ED. This has happened on prior occasions including her first episode of nephrolithiasis approximately 38 years ago. That episode did require a surgery for extraction of the stone. She has since seen Dr. Fernandez regularly and did undergo lithotripsy about 2 years ago. She has not had any other recent acute infections or constitutional symptoms. Her initial noncontrast CT scan on 07/12/16 did show a small right pleural effusion as well as patchy densities at both lung bases and a small pericardial effusion. There were several calculi in the right renal collecting system, but none in the ureters, the UVJs or urinary bladder. There was mild hydronephrosis on the right. In addition, there were noted to be both hyperattenuating and fat density stones in the gallbladder lumen associated with pericholecystic fluid. The patient has been treated with antibiotics ( currently vancomycin) with gradual improvement in symptoms and gradual improvement in white blood cell count and fever (she has been afebrile for the past 24 hours). At the present time, she denies any significant pain and she is now tolerating diet well. She did have some nausea, vomiting, with onset of the sepsis symptoms on Tuesday. She has been passing both flatus and stool. She denies any other previous symptoms to suggest acute cholecystitis or biliary colic. PAST MEDICAL HISTORY: Significant for nephrolithiasis and palpitations. PAST SURGICAL HISTORY: Right flank approach for extraction of right kidney stone. No other abdominal surgeries. CURRENT MEDICATIONS: Include: 1. Hydrochlorothiazide (for her nephrolithiasis). 2. Metoprolol for her palpitations. 3. She also takes vitamin D. 4. Tylenol. DRUG ALLERGIES: None known (she is sensitive to adhesive tape). FAMILY HISTORY: As noted in her admission history and physical. SOCIAL HISTORY: As noted in her admission history and physical. REVIEW OF SYSTEMS: No additions to above. PHYSICAL EXAMINATION: Vital Signs: Height 5 feet 4 inches, weight 156 pounds, temperature 98.2, down from max of 102.8 on presentation. Other vital signs are stable. General: Well-nourished, well-developed female, in no acute distress. Skin: She appears comfortable, sitting up at the edge of her bed, eating dinner. Skin: Warm and dry. No suspicious rashes or lesions. HEENT: Unremarkable. Heart: Regular rate and rhythm. No murmur noted. Lungs: Clear to auscultation. No rales or wheezes. Abdomen: Mildly obese. Bowel sounds present, soft, very mild midepigastric tenderness. No right upper quadrant tenderness. Negative Garcia sign. Remainder of the abdomen is soft, nontender , and without palpable masses or organomegaly. There is a well-healed right flank incision. LABORATORY DATA: White blood cell count 6900 (down from presentation of 16,100) , hemoglobin of 9.0 (gradual decrease since admission), platelets 130. Basic chemistries essentially within normal limits. CRP 142 (down from peak of 177 yesterday). Urinalysis upon presentation showed 2+ blood, including 2+ white blood cells and 1+ red blood cells on the microscopic. Urine culture showed no growth. Blood cultures showed Enterococcus faecalis (see separate sensitivities) . DIAGNOSTIC DATA: Imaging has included the noncontrast CT on admission as well as renal ultrasound with subsequent followup. IMPRESSION: Cholelithiasis, but no significant findings at present time to suggest acute cholecystitis despite her positive blood culture. Most of her constellation of signs and symptoms upon presentation appear to be related to urosepsis related to her nephrolithiasis. PLAN: Case was discussed with Dr. Higgins, who had discussed it initially with Dr. Dwyer. A HIDA scan is ordered for tomorrow morning and we will follow up on her. I gave her our office information in the event that if there is any change or in the future if she has signs and symptoms suggestive of biliary colic. CLARISA MORILLO CC: Bryant Sykes MD; Fortino Fernandez MD * [id number]/[facility] #: [id number] [facility]
[2016-07-13] MEDS ORDERED: NS 0.9% 1000 ML* 1,000 ML IV SCH (23:59)
[2016-07-14] MEDS: Simethicone TAB* 80 MG TAB.CHEW PO PRN ×2 (02:27→14:02)
[2016-07-14] MEDS: Calcium Carbonate CHEW TAB* 500 MG (TUMS) PO PRN ×2 (02:27→14:03)
[2016-07-14] MEDS: Piperac/Tazob 3.375 gm in NS* 3.375 GM/100 ML BAG IVPB SCH ×4 (03:28→20:50)
[2016-07-14] MEDS: Heparin VIAL(*) 5000 UNITS/ML VIAL (FIVE THOUSAND) SUBCUT SCH ×3 (05:40→21:53)
[2016-07-14] MEDS: Docusate CAP* 100 MG PO SCH ×3 (09:12→20:55)
[2016-07-14] MEDS: Cholecalciferol TAB* 1000 UNITS PO SCH ×2 (09:12→14:03)
[2016-07-14] MEDS: Metoprolol Succinate XL TAB* 25 MG PO SCH ×2 (09:12→14:03)
--- NOTE | 2016-07-14 13:55 | RAD ---
Indication: Possible acute cholecystitis. Cholelithiasis. Assess for cystic duct patency. Sepsis. Comparison: July 12, 2016 CT. Technique: 6.100 mCi of Tc-99m Choletec was injected IV. Serial anterior images of the abdomen were obtained immediately following radiopharmaceutical administration to 60 minutes. Delayed RIGHT lateral and anterior scintiphotos obtained at approximate 2.5 hours. Report: There is normal hepatic uptake and excretion of the radiopharmaceutical. Bowel activity visualized at approximately 15 minutes. There is no compelling propagation of contrast to the gallbladder. Suggestion of partial opacification of the cystic duct. IMPRESSION: Cystic duct obstruction consistent with acute cholecystitis.
--- NOTE | 2016-07-14 15:54 | PN ---
Subjective Date of Service: 07/14/16 Interval History: HOSPITALIST PROGRESS NOTE Patient seen and examined at bedside. She feels better this AM. Didn't sleep well last night, has some nausea, nightmares. Abdominal pain is improved, no N/V. Family History: Unchanged from Admission Social History: Unchanged from Admission Past Medical History: Unchanged from Admission Objective Active Medications: Acetaminophen (Tylenol Supp*) 650 mg SC Q4H PRN PRN Reason: FEVER/PAIN Acetaminophen (Tylenol Tab*) 650 mg PO Q4H PRN PRN Reason: FEVER/PAIN Last Admin: 07/13/16 00:23 Dose: 650 mg Calcium Carbonate (Tums*) 500 mg PO Q4H PRN PRN Reason: INDIGESTION Last Admin: 07/14/16 14:03 Dose: 500 mg Cholecalciferol (Vitamin D Tab*) 1,000 units PO DAILY [facility] Last Admin: 07/14/16 14:03 Dose: 1,000 units Docusate Sodium (Colace Cap*) 100 mg PO BID [facility] Last Admin: 07/14/16 14:02 Dose: 100 mg Heparin Sodium (Porcine) (Heparin Vial(*)) 5,000 units SUBCUT Q8HR [facility] Last Admin: 07/14/16 13:41 Dose: 5,000 units Piperacillin Sod/Tazobactam Sod (Zosyn 3.375 Gm In Ns Premix*) 3.375 gm in 100 mls @ 25 mls/hr IVPB Q8H [facility] Last Admin: 07/14/16 13:04 Dose: 25 mls/hr Metoprolol Succinate (Toprol Xl Tab*) 25 mg PO QAM [facility] Last Admin: 07/14/16 14:03 Dose: 25 mg Morphine Sulfate (Morphine Inj (Syringe)*) 2 mg IV Q2H PRN PRN Reason: PAIN Last Admin: 07/12/16 16:02 Dose: 2 mg Ondansetron HCl (Zofran Inj*) 4 mg IV Q4H PRN PRN Reason: NAUSEA Last Admin: 07/12/16 15:49 Dose: 4 mg Phenyleph/Shark Oil/Min Oil/Petrol (Preparation H*) 1 applic SC QID PRN PRN Reason: DISCOMFORT Last Admin: 07/13/16 21:36 Dose: 1 applic Simethicone (Mylicon*) 80 mg PO Q6H PRN PRN Reason: Gas/bloating Last Admin: 07/14/16 14:02 Dose: 80 mg Vital Signs 07/14/16 07/14/16 07/14/16 07:48 08:00 08:55 Temperature 97.9 F Pulse Rate 74 Respiratory 18 18 Rate Blood Pressure 143/70 (mmHg) O2 Sat by Pulse 99 99 Oximetry Oxygen Devices in Use Now: None Appearance: Pleasant lady sitting up in bed in NAD. Eyes: No Scleral Icterus Ears/Nose/Mouth/Throat: Mucous Membranes Moist Neck: Trachea Midline Respiratory: Symmetrical Chest Expansion and Respiratory Effort, Clear to Auscultation Cardiovascular: NL Sounds; No Murmurs; No JVD, RRR Abdominal: NL Sounds; No Tenderness; No Distention Extremities: No Edema Neurological: Alert and Oriented x 3, NL Muscle Strength and Tone Lines/Tubes/Other Access: Clean, Dry and Intact Peripheral IV Nutrition: Taking PO's Result Diagrams: 07/13/16 05:58 07/13/16 05:58 Assess/Plan/Problems-Billing Assessment: Mrs. Sousa is a 61yo F with PMH of nephrolithiasis who presents to ED with sepsis secondary to pyelonephritis. - Patient Problems (1) Sepsis Comment: - Patient met sepsis criteria with fever, tachycardia, leukocytosis. - Source is pyelnophritis. (2) Pyelonephritis Comment: - Renal US was negative for hydro. - CT showed mild right hydro and gas in the bladder (straight cath attempted in the ED). - Blood cultures growing Enterococcus faecalis. Urine culture show no growth so far. - Continue Zosyn. (3) Nephrolithiasis Comment: - Patient passed a stone day prior to admission. (4) Enterococcus faecalis infection Comment: - ID consult appreciated - concerned with other possible sources, especially cholecystitis. - Continue Zosyn. (5) Cholelithiasis Comment: - CT abdome showed cholelithiasis with pericholecystic fluid, but on admission patient had no RUQ tenderness. I believe the bump on her LFTs is due to severe sepsis. - Surgery consult appreciated - for HIDA scan today. - I believe the source of her sepsis is pyelonephritis but will explore other sources like cholecystitis. (6) DVT prophylaxis Comment: - SQ heparin. (7) Full code status Status and Disposition: Inpatient for management of sepsis and pyelonephritis.
--- NOTE | 2016-07-14 16:55 | PN ---
Progress Note - Progress Note Note: Surgery Progress: S: Denies abd pain. Had some nausea this a.m. which has since passed. No vomiting. Has tolerated diet since her study this am. No fever. O: Vital Signs - 8 hr 07/14/16 07/14/16 15:47 16:00 Temperature 98.7 F Pulse Rate 65 Respiratory 20 Rate Blood Pressure 136/77 (mmHg) O2 Sat by Pulse 95 99 Oximetry Intake and Output Last 24 Hours 07/12/16 07/13/16 07/14/16 07/15/16 06:59 06:59 06:59 06:59 Intake Total 5297 3175 1817 380 Output Total 0630 581 9975 850 Balance 3972 2850 -564 -470 Weight 156 lb 4.924 oz Intake: IV Fluids 1837 1000 477 40 NS (0.9%) 1837 1000 477 40 IVPB 1210 535 480 220 ABX - CEFTRIAXONE 50 ABX - VANCOMYCIN 535 265 ABX - ZOSYN 100 215 220 Gentamicin 100 NS (0.9%) 960 Oral 2250 1640 860 120 Output: Urine 2280 381 6754 850 Wilson 200 Straight Cath 400 Post Void Residual 381 0 Other: Estimated Void Medium Medium Date of Last Bowel 07/14/16 Movement # Bowel Movements 0 1 Estimated Stool Amount Medium # Voids 1 1 Heart: reg Lungs: clear to bases Abd: soft, nontender to palp ("fullness" per patient); neg Garcia's Labs reviewed HIDA: Indication: Possible acute cholecystitis. Cholelithiasis. Assess for cystic duct patency. Sepsis. Comparison: July 12, 2016 CT. Technique: 6.100 mCi of Tc-99m Choletec was injected IV. Serial anterior images of the abdomen were obtained immediately following radiopharmaceutical administration to 60 minutes. Delayed RIGHT lateral and anterior scintiphotos obtained at approximate 2.5 hours. Report: There is normal hepatic uptake and excretion of the radiopharmaceutical. Bowel activity visualized at approximately 15 minutes. There is no compelling propagation of contrast to the gallbladder. Suggestion of partial opacification of the cystic duct. IMPRESSION: Cystic duct obstruction consistent with acute cholecystitis. A: admission for sepsis, initially felt to be r/t urosepsis and passage of kidney stone, but with + BC for Enterococcus and non-vis GB on HIDA, increased consideration for GB source P: discussed w/ Dr. Higgins. Cont Abx for present. Consider cholecystectomy, even during this admission ( or Tue). Will d/w pt and make NPO in am.
[2016-07-15] MEDS: Piperac/Tazob 3.375 gm in NS* 3.375 GM/100 ML BAG IVPB SCH ×3 (04:00→19:47)
[2016-07-15 05:01] LABS: Hematocrit 27 % (35-47); Hemoglobin 9.1 g/dl (12.0-16.0); Mean Corpuscular HGB Conc 34 g/dl (31-36); Mean Corpuscular Hemoglobin 30 pg (27-31); Mean Corpuscular Volume 89 fL (80-97); Mean Platelet Volume 8 um3 (7.4-10.4); Red Blood Count 3.02 10^6/ul (4.0-5.4); Red Cell Distribution Width 13 % (10.5-15); White Blood Count 5.7 10^3/ul (3.5-10.8)
[2016-07-15 05:03] LABS: Add Diff/Slide Review? Slide Review Added; Comments Flag Yes
[2016-07-15 05:25] LABS: BUN/Creatinine Ratio 12.3 (8-20); C Reactive Protein 60.39 mg/L (< 5.00); EGFR African American 139.1 (>60); EGFR Non-African American 108.2 (>60); Potassium 3.7 mmol/L (3.5-5.0)
[2016-07-15] MEDS: Heparin VIAL(*) 5000 UNITS/ML VIAL (FIVE THOUSAND) SUBCUT SCH ×3 (05:55→21:12)
[2016-07-15] MEDS: Acetaminophen TAB* 325 MG PO PRN (07:30)
[2016-07-15] MEDS: Metoprolol Succinate XL TAB* 25 MG PO SCH (08:37)
[2016-07-15] MEDS: Cholecalciferol TAB* 1000 UNITS PO SCH (08:37)
[2016-07-15] MEDS: Docusate CAP* 100 MG PO SCH ×3 (08:37→19:54)
[2016-07-15] MEDS: Hemorrhoidal OINT PR PRN (08:42)
[2016-07-15] MEDS ORDERED: Bupivacaine 0.25% EPI 200,000* 30 ML SDV ONE (10:51)
[2016-07-15] MEDS ORDERED: Dexamethasone IV* 4 MG/ML 1 ML (4 MG) IV SLOW PU ONE (11:22)
[2016-07-15] MEDS ORDERED: Buffered Lidocaine 1% SYR 3ML* 3 ML/SYR SYRINGE INTRADERM ONE (11:22)
[2016-07-15] MEDS ORDERED: Famotidine IV* 10 MG/ML 2 ML (20 mg) IV ONE (11:22)
[2016-07-15] MEDS ORDERED: Scopolamine 1.5 mg* PATCH TRANSDERM PRN (11:23)
[2016-07-15] MEDS ORDERED: HYDROmorphone INJ* 1 MG/ML CARPUJECT SYRINGE IV PRN (11:23)
[2016-07-15] MEDS ORDERED: fentaNYL* 50 MCG/ML 2 ML VIAL (100 MCG VIAL) IV PRN (11:23)
[2016-07-15] MEDS ORDERED: oxyCODONE/Acetamin 5/325 MG* TAB PO PRN ×2 (11:23→12:43)
[2016-07-15] MEDS ORDERED: DiMENhydriNATE IV* 50 MG/ML VIAL IV PUSH PRN (11:23)
[2016-07-15] MEDS ORDERED: Ondansetron INJ* 2 MG/ML VIAL IV PRN (11:23)
[2016-07-15] MEDS ORDERED: fentaNYL* 50 MCG/ML 5 ML VIAL (250 MCG VIAL) ONE (11:27)
[2016-07-15] MEDS ORDERED: Atracurium* 10 MG/ML 10 ML VIAL ONE (11:27)
[2016-07-15] MEDS ORDERED: Ketorolac INJ* 30 MG/ML 1 ML VIAL ONE (11:27)
[2016-07-15] MEDS ORDERED: Midazolam* 1 MG/ML 5 ML VIAL (5 MG) ONE (11:27)
[2016-07-15] MEDS ORDERED: Propofol* 10 MG/ML 20 ML BTL IV PUSH ONE (11:27)
[2016-07-15] MEDS ORDERED: Lidocaine 2% MPF* 2 ML VIAL ONE (11:27)
[2016-07-15] MEDS ORDERED: Ondansetron INJ* 2 MG/ML VIAL ONE (11:27)
[2016-07-15] MEDS ORDERED: Glycopyrrolate IV* 0.2 MG/ML 1 ML VIAL ONE (12:03)
[2016-07-15] MEDS ORDERED: fentaNYL* 50 MCG/ML 2 ML VIAL (100 MCG VIAL) ONE (12:03)
--- NOTE | 2016-07-15 12:42 | PN ---
Progress Note - Progress Note Note: Brief Operative Note: Preop Dx: acute cholecystitis Postop Dx: same Procedure: laparoscopic choleycystectomy Anesthesia: GET Surgeon: Ada Asst: CLARISA Norris EBL: <50 cc Fluids: 500 ml Drains: none Findings: dictated
--- NOTE | 2016-07-15 13:56 | PN ---
Subjective Date of Service: 07/15/16 Interval History: HOSPITALIST PROGRESS NOTE Patient seen and examined at bedside. She feels well today. Had a good night of sleep, denies abdominal pain, N/V. Family History: Unchanged from Admission Social History: Unchanged from Admission Past Medical History: Unchanged from Admission Objective Active Medications: Acetaminophen (Tylenol Supp*) 650 mg CO Q4H PRN PRN Reason: FEVER/PAIN Acetaminophen (Tylenol Tab*) 650 mg PO Q4H PRN PRN Reason: FEVER/PAIN Last Admin: 07/15/16 07:30 Dose: 650 mg Calcium Carbonate (Tums*) 500 mg PO Q4H PRN PRN Reason: INDIGESTION Last Admin: 07/14/16 14:03 Dose: 500 mg Cholecalciferol (Vitamin D Tab*) 1,000 units PO DAILY [facility] Last Admin: 07/15/16 08:37 Dose: 1,000 units Docusate Sodium (Colace Cap*) 100 mg PO BID [facility] Last Admin: 07/15/16 08:40 Dose: Not Given Heparin Sodium (Porcine) (Heparin Vial(*)) 5,000 units SUBCUT Q8HR [facility] Last Admin: 07/15/16 05:55 Dose: 5,000 units Piperacillin Sod/Tazobactam Sod (Zosyn 3.375 Gm In Ns Premix*) 3.375 gm in 100 mls @ 25 mls/hr IVPB Q8H [facility] Last Admin: 07/15/16 04:00 Dose: 25 mls/hr Lactated Ringer's (Lactated Ringers 1000 Ml Bag*) 1,000 mls @ 125 mls/hr IV PER RATE [facility] Metoprolol Succinate (Toprol Xl Tab*) 25 mg PO QAM [facility] Last Admin: 07/15/16 08:37 Dose: 25 mg Morphine Sulfate (Morphine Inj (Syringe)*) 2 mg IV Q2H PRN PRN Reason: PAIN Last Admin: 07/12/16 16:02 Dose: 2 mg Ondansetron HCl (Zofran Inj*) 4 mg IV Q4H PRN PRN Reason: NAUSEA Last Admin: 07/12/16 15:49 Dose: 4 mg Oxycodone/Acetaminophen (Percocet 5/325 Tab*) 1 tab PO ONCE PRN PRN Reason: PAIN - MODERATE Stop: 07/16/16 11:24 Oxycodone/Acetaminophen (Percocet 5/325 Tab*) 1 tab PO Q3H PRN PRN Reason: PAIN - MODERATE Pharmacy Profile Note (Scopolomine Patch Remove*) 1 note PATCH OFF Q72H ONE Stop: 07/18/16 11:25 Phenyleph/Shark Oil/Min Oil/Petrol (Preparation H*) 1 applic CO QID PRN PRN Reason: DISCOMFORT Last Admin: 07/15/16 08:42 Dose: 1 applic Simethicone (Mylicon*) 80 mg PO Q6H PRN PRN Reason: Gas/bloating Last Admin: 07/14/16 14:02 Dose: 80 mg Vital Signs 07/15/16 07/15/16 07/15/16 06:51 08:00 12:45 Temperature 98.6 F 98.2 F Pulse Rate 76 98 Respiratory 16 16 16 Rate Blood Pressure 130/70 102/84 (mmHg) O2 Sat by Pulse 95 95 96 Oximetry Oxygen Devices in Use Now: None Appearance: Pleasant lady sitting up in bed in NAD. Eyes: No Scleral Icterus Ears/Nose/Mouth/Throat: Mucous Membranes Moist Neck: Trachea Midline Respiratory: Symmetrical Chest Expansion and Respiratory Effort, Clear to Auscultation Cardiovascular: NL Sounds; No Murmurs; No JVD, RRR Abdominal: NL Sounds; No Tenderness; No Distention Extremities: No Edema Neurological: Alert and Oriented x 3, NL Muscle Strength and Tone Lines/Tubes/Other Access: Clean, Dry and Intact Peripheral IV Nutrition: Taking PO's Result Diagrams: 07/15/16 04:54 07/15/16 04:54 Assess/Plan/Problems-Billing Assessment: Mrs. Sousa is a 61yo F with PMH of nephrolithiasis who presents to ED with sepsis secondary to pyelonephritis. - Patient Problems (1) Sepsis Comment: - Patient met sepsis criteria with fever, tachycardia, leukocytosis. - Source is pyelnophritis. (2) Pyelonephritis Comment: - Renal US was negative for hydro. - CT showed mild right hydro and gas in the bladder (straight cath attempted in the ED). - Blood cultures growing Enterococcus faecalis. Urine culture show no growth so far. - Continue Zosyn. (3) Nephrolithiasis Comment: - Patient passed a stone day prior to admission. (4) Enterococcus faecalis infection Comment: - ID consult appreciated - concerned with other possible sources, especially cholecystitis. - Continue Zosyn. (5) Cholelithiasis Comment: - CT abdome showed cholelithiasis with pericholecystic fluid, but on admission patient had no RUQ tenderness. I believe the bump on her LFTs is due to severe sepsis. - I believe the source of her sepsis is pyelonephritis but will explore other sources like cholecystitis. - HIDA scan showed findings compatible with cholecystitis. Although I still think her initial insult was pyelo, cholecystitis could also be present. Awaiting surgery decision re: lap micah. (6) DVT prophylaxis Comment: - SQ heparin. (7) Full code status Status and Disposition: Inpatient for management of sepsis and pyelonephritis.
[2016-07-15] MEDS: Calcium Carbonate CHEW TAB* 500 MG (TUMS) PO PRN (17:08)
[2016-07-15] MEDS: Simethicone TAB* 80 MG TAB.CHEW PO PRN (19:59)
[2016-07-16] MEDS: Calcium Carbonate CHEW TAB* 500 MG (TUMS) PO PRN (00:35)
--- NOTE | 2016-07-16 03:42 | OP ---
DATE OF OPERATION: 07/15/16 - ROOM #415 DATE OF : 57 SURGEON: Lizandro Caballero MD SENIOR APPLICATION PROGRAMMER: CLARISA Pressley ANESTHESIOLOGIST: Dr. Case. ANESTHESIA: General anesthetic, local infiltration. PRE-OP DIAGNOSIS: Acute cholecystitis. POST-OP DIAGNOSIS: Acute cholecystitis. OPERATIVE PROCEDURE: Laparoscopic cholecystectomy. DESCRIPTION OF PROCEDURE: The patient was supine on the operating table. After adequate general anesthetic, compression stockings, Margot Hugger warmer and intravenous antibiotics, the abdomen was prepped with antiseptic and draped in a sterile fashion. Local infiltrative anesthesia was carried out at the umbilicus. Small umbilical incision was created. Blunt port cannula was placed. Insufflation was carried out with carbon dioxide. Initial cannulae, 12 mm subxiphoid and 5 mm right upper quadrant and right anterior axillary line placed with small stab wounds under direct vision. Gallbladder was somewhat edematous but not badly infected. The areolar tissue was taken down at the cystic duct and cystic artery which were readily identified, clipped and divided. There was also a posterior branch which was clipped and divided. The gallbladder was taken off the liver bed using electrocautery. Hemostasis was obtained using electrocautery. Everything was in good condition. The gallbladder was removed through the subxiphoid port without any spillage. The operative field was irrigated with warm saline solution. Free fluid was suctioned out. Hemostasis was again confirmed. Cannulae were removed. Pneumoperitoneum were allowed to escape. Fascia of two larger incisions were closed with 0 Polysorb and skin with 5-0 Polysorb in all cases followed by Steri - Strips. She tolerated the procedure well, was awakened and brought to Recovery in good condition. There were no complications. No drains. Pathologic specimen is gallbladder. Sponge and instrument counts correct. Estimated blood loss 50 mL. CC: Lizandro Caballero MD; Bryant Sykes MD* [id number]/[facility] #: [id number] MTDD
[2016-07-16] MEDS: Piperac/Tazob 3.375 gm in NS* 3.375 GM/100 ML BAG IVPB SCH ×2 (04:10→12:08)
[2016-07-16] MEDS: Heparin VIAL(*) 5000 UNITS/ML VIAL (FIVE THOUSAND) SUBCUT SCH ×2 (05:06→13:45)
[2016-07-16 07:47] VITALS: BP 142/74
[2016-07-16] MEDS: Docusate CAP* 100 MG PO SCH (07:53)
[2016-07-16] MEDS: Simethicone TAB* 80 MG TAB.CHEW PO PRN (07:54)
[2016-07-16] MEDS: Cholecalciferol TAB* 1000 UNITS PO SCH (07:54)
[2016-07-16] MEDS: Metoprolol Succinate XL TAB* 25 MG PO SCH (07:54)
--- NOTE | 2016-07-16 09:56 | PN ---
Progress Note - Progress Note SOAP: Subjective: DOS: 07/16/16 CC: bacteremia HPI: 61 yo woman with recent right flank pain, fever, rigors, passed kidney stone, symptoms worsened, admitted, IVF and antibiotics and improved, imaging suggested right ureteral edema and acute cholecystitis, had GB out yesterday. Overnight she developed nausea without abdominal pain, improved this morning after eating. No flatus or BM today. Objective: [] Vital Signs Temp 36.8 C 07/16/16 07:45 Pulse 72 07/16/16 07:45 Resp 16 07/16/16 08:10 BP 142/74 07/16/16 07:45 Pulse Ox 94 07/16/16 08:44 Intake & Output 07/15/16 07/16/16 07/16/16 18:59 06:59 18:59 Intake Total 830 490 358 Output Total 742 Balance 88 490 358 Intake: IV Fluids 520 40 LR 500 NS (0.9%) 20 40 IVPB 110 218 ABX - ZOSYN 110 218 Oral 200 490 100 Output: Urine 725 Post Void Residual 17 Other: Estimated Void Medium Medium Medium # Bowel Movements 0 # Voids 2 0 1 Gen:Awake, NAD, Ox3 HEENT:no thrush Neck:supple Heart:RRR no murmur Lungs:CTA BL Abd:+BS, mildly distended, soft Skin: no rash, no splinter hemorrhage MSK: no spine tenderness Sodium 140 mmol/L (133-145) 07/15/16 04:54 Potassium 3.7 mmol/L (3.5-5.0) 07/15/16 04:54 BUN 7 mg/dL (6-24) 07/15/16 04:54 Creatinine 0.57 mg/dL (0.51-0.95) 07/15/16 04:54 Calcium 9.0 mg/dL (8.6-10.3) 07/15/16 04:54 Magnesium 1.6 mg/dL (1.9-2.7) L 07/12/16 04:50 AST 28 U/L (13-39) 07/13/16 05:58 ALT 47 U/L (7-52) 07/13/16 05:58 Assessment: 1. Enterococcal bacteremia, cleared; suspect due to GB disease; only 1/4 positive and cleared rapidly, no peripheral stigmata of endocarditis I think it is an unlikely complication. 2. acute cholecystitis s/p cholecystectomy 3. nephrolithiasis, recent stone passed 4. nausea; +BS on exam suspect post op change Plan: 1. continue zosyn while awaiting return of bowel function and then augmentin 500 mg PO BID x10 days
--- NOTE | 2016-07-16 14:38 | PN ---
Progress Note - Progress Note Note: Time spent on discharge 45 minutes.
--- NOTE | 2016-07-16 14:39 | DCNOTE ---
Subjective Date of Service: 07/16/16 Interval History: Minimal pain. Ate well. Walks well. No new c/o, anxious to go home. Family History: Unchanged from Admission Social History: Unchanged from Admission Past Medical History: Unchanged from Admission Objective Active Medications: Acetaminophen (Tylenol Supp*) 650 mg DC Q4H PRN PRN Reason: FEVER/PAIN Acetaminophen (Tylenol Tab*) 650 mg PO Q4H PRN PRN Reason: FEVER/PAIN Last Admin: 07/15/16 07:30 Dose: 650 mg Calcium Carbonate (Tums*) 500 mg PO Q4H PRN PRN Reason: INDIGESTION Last Admin: 07/16/16 00:35 Dose: 500 mg Cholecalciferol (Vitamin D Tab*) 1,000 units PO DAILY [facility] Last Admin: 07/16/16 07:54 Dose: 1,000 units Docusate Sodium (Colace Cap*) 100 mg PO BID [facility] Last Admin: 07/16/16 07:53 Dose: Not Given Heparin Sodium (Porcine) (Heparin Vial(*)) 5,000 units SUBCUT Q8HR [facility] Last Admin: 07/16/16 13:45 Dose: 5,000 units Piperacillin Sod/Tazobactam Sod (Zosyn 3.375 Gm In Ns Premix*) 3.375 gm in 100 mls @ 25 mls/hr IVPB Q8H [facility] Last Admin: 07/16/16 12:08 Dose: 25 mls/hr Metoprolol Succinate (Toprol Xl Tab*) 25 mg PO QAM [facility] Last Admin: 07/16/16 07:54 Dose: 25 mg Morphine Sulfate (Morphine Inj (Syringe)*) 2 mg IV Q2H PRN PRN Reason: PAIN Last Admin: 07/12/16 16:02 Dose: 2 mg Ondansetron HCl (Zofran Inj*) 4 mg IV Q4H PRN PRN Reason: NAUSEA Last Admin: 07/12/16 15:49 Dose: 4 mg Oxycodone/Acetaminophen (Percocet 5/325 Tab*) 1 tab PO Q3H PRN PRN Reason: PAIN - MODERATE Pharmacy Profile Note (Scopolomine Patch Remove*) 1 note PATCH OFF Q72H ONE Stop: 07/18/16 11:25 Phenyleph/Shark Oil/Min Oil/Petrol (Preparation H*) 1 applic DC QID PRN PRN Reason: DISCOMFORT Last Admin: 07/15/16 08:42 Dose: 1 applic Simethicone (Mylicon*) 80 mg PO Q6H PRN PRN Reason: Gas/bloating Last Admin: 07/16/16 07:54 Dose: 80 mg Vital Signs 07/15/16 07/15/16 07/15/16 15:32 16:00 17:09 Temperature 97.6 F 97.7 F Pulse Rate 58 66 Respiratory 17 17 Rate Blood Pressure 141/75 142/73 (mmHg) O2 Sat by Pulse 95 95 95 Oximetry 07/15/16 07/15/16 07/15/16 19:33 20:00 21:09 Temperature 97.8 F 98.2 F Pulse Rate 63 63 Respiratory 16 14 17 Rate Blood Pressure 147/73 152/72 (mmHg) O2 Sat by Pulse 96 95 94 Oximetry 07/15/16 07/16/16 07/16/16 23:27 00:00 04:07 Temperature 98.3 F 98.7 F Pulse Rate 67 66 Respiratory 16 16 Rate Blood Pressure 160/73 154/75 (mmHg) O2 Sat by Pulse 91 96 96 Oximetry 07/16/16 07/16/16 07/16/16 07:45 08:00 08:10 Temperature 98.3 F Pulse Rate 72 Respiratory 16 16 Rate Blood Pressure 142/74 (mmHg) O2 Sat by Pulse 94 94 94 Oximetry 07/16/16 08:44 Temperature Pulse Rate Respiratory Rate Blood Pressure (mmHg) O2 Sat by Pulse 94 Oximetry Oxygen Devices in Use Now: None Appearance: Alert, sitting up in bed. In good spirits. Looks comfortable. Eyes: No Scleral Icterus Respiratory: Symmetrical Chest Expansion and Respiratory Effort, Clear to Auscultation, Clear to Percussion Cardiovascular: NL Sounds; No Murmurs; No JVD, RRR, No Edema, - Skin: No Rash or Ulcers, No Nodules or Sclerosis, - Neurological: Alert and Oriented x 3, NL Sensation Result Diagrams: 07/15/16 04:54 07/15/16 04:54 Additional Lab and Data: Lab Results 07/10/16 07/10/16 07/10/16 Range/Units 19:15 19:30 19:30 WBC 16.1 H (3.5-10.8) 10^3/ul RBC 4.63 (4.0-5.4) 10^6/ul Hgb 13.6 (12.0-16.0) g/dl Hct 41 (35-47) % MCV 88 (80-97) fL MCH 29 (27-31) pg MCHC 33 (31-36) g/dl RDW 13 (10.5-15) % Plt Count 222 (150-450) 10^3/ul MPV 8 (7.4-10.4) um3 Neut % (Auto) 90.7 H (38-83) % Lymph % (Auto) 5.6 L (25-47) % Duchesne % (Auto) 3.3 (1-9) % Eos % (Auto) 0.2 (0-6) % Baso % (Auto) 0.2 (0-2) % Absolute Neuts (auto) 14.6 H (1.5-7.7) 10^3/ul Absolute Lymphs (auto) 0.9 L (1.0-4.8) 10^3/ul Absolute Monos (auto) 0.5 (0-0.8) 10^3/ul Absolute Eos (auto) 0 (0-0.6) 10^3/ul Absolute Basos (auto) 0 (0-0.2) 10^3/ul Absolute Nucleated RBC 0 10^3/ul Nucleated RBC % 0 INR (Anticoag Therapy) 1.08 (0.89-1.11) APTT 30.6 (26.0-36.3) seconds Fibrinogen 429 H (110.8-404.3) mg/dL Sodium (133-145) mmol/L Potassium (3.5-5.0) mmol/L Chloride (101-111) mmol/L Carbon Dioxide (22-32) mmol/L Anion Gap (2-11) mmol/L BUN (6-24) mg/dL Creatinine (0.51-0.95) mg/dL Est GFR ( Amer) (>60) Est GFR (Non-Af Amer) (>60) BUN/Creatinine Ratio (8-20) Glucose (70-100) mg/dL Lactic Acid (0.5-2.0) mmol/L Calcium (8.6-10.3) mg/dL Total Bilirubin (0.2-1.0) mg/dL AST (13-39) U/L ALT (7-52) U/L Alkaline Phosphatase (34-104) U/L Troponin I (<0.04) ng/mL C-Reactive Protein (< 5.00) mg/L B-Natriuretic Peptide ( - 100) pg/mL Total Protein (6.4-8.9) g/dL Albumin (3.2-5.2) g/dL Globulin (2-4) g/dL Albumin/Globulin Ratio (1-3) Urine Color Straw Urine Appearance Clear Urine pH 7.0 (5-9) Ur Specific [place] 1.006 L (1.010-1.030) Urine Protein Negative (Negative) Urine Ketones 1+ H (Negative) Urine Blood 2+ H (Negative) Urine Nitrate Negative (Negative) Urine Bilirubin Negative (Negative) Urine Urobilinogen Negative (Negative) Ur Leukocyte Esterase 2+ H (Negative) Urine WBC (Auto) 2+(11-20/hpf) H (Absent) Urine RBC (Auto) 1+(3-5/hpf) H (Absent) Ur Squamous Epith Cells Present H (Absent) Urine Bacteria Absent (Absent) Urine Glucose Negative (Negative) 07/10/16 07/10/16 07/10/16 Range/Units 19:30 19:30 19:30 WBC (3.5-10.8) 10^3/ul RBC (4.0-5.4) 10^6/ul Hgb (12.0-16.0) g/dl Hct (35-47) % MCV (80-97) fL MCH (27-31) pg MCHC (31-36) g/dl RDW (10.5-15) % Plt Count (150-450) 10^3/ul MPV (7.4-10.4) um3 Neut % (Auto) (38-83) % Lymph % (Auto) (25-47) % Duchesne % (Auto) (1-9) % Eos % (Auto) (0-6) % Baso % (Auto) (0-2) % Absolute Neuts (auto) (1.5-7.7) 10^3/ul Absolute Lymphs (auto) (1.0-4.8) 10^3/ul Absolute Monos (auto) (0-0.8) 10^3/ul Absolute Eos (auto) (0-0.6) 10^3/ul Absolute Basos (auto) (0-0.2) 10^3/ul Absolute Nucleated RBC 10^3/ul Nucleated RBC % INR (Anticoag Therapy) (0.89-1.11) APTT (26.0-36.3) seconds Fibrinogen (110.8-404.3) mg/dL Sodium 138 (133-145) mmol/L Potassium 3.4 L (3.5-5.0) mmol/L Chloride 99 L (101-111) mmol/L Carbon Dioxide 28 (22-32) mmol/L Anion Gap 11 (2-11) mmol/L BUN 10 (6-24) mg/dL Creatinine 0.70 (0.51-0.95) mg/dL Est GFR ( Amer) 109.8 (>60) Est GFR (Non-Af Amer) 85.4 (>60) BUN/Creatinine Ratio 14.3 (8-20) Glucose 116 H (70-100) mg/dL Lactic Acid 1.8 (0.5-2.0) mmol/L Calcium 10.3 (8.6-10.3) mg/dL Total Bilirubin 1.20 H (0.2-1.0) mg/dL AST 17 (13-39) U/L ALT 13 (7-52) U/L Alkaline Phosphatase 63 (34-104) U/L Troponin I 0.00 (<0.04) ng/mL C-Reactive Protein 29.91 H (< 5.00) mg/L B-Natriuretic Peptide 73 ( - 100) pg/mL Total Protein 8.2 (6.4-8.9) g/dL Albumin 5.1 (3.2-5.2) g/dL Globulin 3.1 (2-4) g/dL Albumin/Globulin Ratio 1.6 (1-3) Urine Color Urine Appearance Urine pH (5-9) Ur Specific [place] (1.010-1.030) Urine Protein (Negative) Urine Ketones (Negative) Urine Blood (Negative) Urine Nitrate (Negative) Urine Bilirubin (Negative) Urine Urobilinogen (Negative) Ur Leukocyte Esterase (Negative) Urine WBC (Auto) (Absent) Urine RBC (Auto) (Absent) Ur Squamous Epith Cells (Absent) Urine Bacteria (Absent) Urine Glucose (Negative) Microbiology and Other Data: Microbiology 07/11/16 15:50 Aerobic Blood Culture - Preliminary Blood Venous No Growth Day 1 Anaerobic Blood Culture - Preliminary No Growth Day 1 07/11/16 15:30 Aerobic Blood Culture - Preliminary Blood Venous No Growth Day 1 Anaerobic Blood Culture - Preliminary No Growth Day 1 Assess/Plan/Problems-Billing Assessment: Mrs. Sousa is a 61yo F with PMH of nephrolithiasis who presents to ED with sepsis secondary to pyelonephritis. - Patient Problems (1) Cholelithiasis Current Visit: Yes Status: Acute Comment: HIDA scan showed findings compatible with cholecystitis. S/P lap-micah 07/15/16, satisfactory post-op course. (2) Nephrolithiasis Current Visit: Yes Status: Acute Code(s): N20.0 - CALCULUS OF KIDNEY SNOMED Code(s): 28898462 Comment: - Patient passed a stone day prior to admission. Hx prior stones. No ureteral obstruction. (3) Enterococcus faecalis infection Current Visit: Yes Status: Acute Code(s): B95.2 - ENTEROCOCCUS THE CAUSE OF DISEASES CLASSIFIED ELSEWHERE SNOMED Code(s): 382612080 Comment: - ID consult appreciated - concerned with other possible sources, especially cholecystitis. 10 days amox/clav 500 mg bid at home. (4) HTN (hypertension) Current Visit: Yes Status: Acute Code(s): I10 - ESSENTIAL (PRIMARY) HYPERTENSION SNOMED Code(s): 93745263 Comment: Continue metoprolol. Resume thiazide on 07/19/16. Status and Disposition: Discharge now. Fup Ada Moser.
--- NOTE | 2016-07-16 14:50 | PN ---
Progress Note - Progress Note Note: Time spent on discharge 45 minutes.
--- NOTE | 2016-07-16 23:52 | DS ---
CC: Dr. Sykes; Dr. Caballero DISCHARGE SUMMARY: DATE OF ADMISSION: 07/15/16 DATE OF DISCHARGE: 07/16/16 HOSPITAL COURSE: This 61-year-old woman was admitted with fever, chills, pain in the right side. S he had history of kidney stones and was familiar with this feeling. She thought she passed the ston e at home and thought she was better but then developed fever and chills and had some nausea and vom iting. Her temperature in the emergency room was 103.8. CT scan showed gallstones as well as right renal calculi but no ureteral obstruction. She was felt to have pyelonephritis. She was started o n piperacillin and tazobactam. She was seen in consultation by Dr. Higgins. A HIDA scan was ordere d. This showed cystic duct obstruction consistent with cholecystitis. She underwent laparoscopic cholecystectomy on 07/15/16. She tolerated this very well. Her temperat ure was under 100 degrees the last 3-1/2 days of her hospital stay. Her white count came down to no rmal. One blood culture showed Enterococcus faecalis out of the initial two sets. Subsequent two b lood cultures with no growth. Urine culture showed no significant growth. The Enterococcus was sen sitive to penicillin. She will complete her antibiotic course with 10 full days of amoxicillin/clavulanic 500 mg b.i.d. at home. She will follow up with Dr. Caballero and Dr. Sykes. FINAL DIAGNOSES: 1. Acute cholecystitis and cholelithiasis. 2. Renal calculi. 3. Hypertension. DISCHARGE MEDICATIONS: 1. Amoxicillin and clavulanic 500 mg b.i.d. for 10 days. 2. Metoprolol succinate 25 mg daily. 3. Hydrochlorothiazide 25 mg daily, to start on 07/19/16. 4. Acetaminophen 500 mg daily p.r.n. 5. Cholecalciferol 1000 units daily. [id number]/[facility] #: [id number]
[2016-07-18] MEDS ORDERED: Scopolamine PATCH Remove* 1 NOTE MISC PATCH OFF ONE (11:24)
== END 2016-07-16 16:05 | disposition home or self-care (01) | DRG 854 ==
LOC: ED 18:16 → MED 07-11 00:26 → ICU 07-11 14:49 → MED 07-12 15:07
PROVIDERS: ADMIT Internal Medicine; ATTEND Internal Medicine
PROC: 0FT44ZZ Resection of Gallbladder, Percutaneous Endoscopic Approach (ICD-10-PCS; principal; 2016-07-15 14:00)
DX: A41.81 Sepsis due to Enterococcus (principal); N12 Tubulo-interstitial nephritis, not specified as acute or chronic; D69.6 Thrombocytopenia, unspecified; K80.01 Calculus of gallbladder with acute cholecystitis with obstruction; N13.30 Unspecified hydronephrosis; K80.20 Calculus of gallbladder without cholecystitis without obstruction; R65.20 Severe sepsis without septic shock; A41.9 Sepsis, unspecified organism; N20.0 Calculus of kidney; J30.2 Other seasonal allergic rhinitis; I10 Essential (primary) hypertension; F41.9 Anxiety disorder, unspecified; H26.9 Unspecified cataract; R11.0 Nausea; M19.90 Unspecified osteoarthritis, unspecified site; K27.9 Peptic ulcer, site unspecified, unspecified as acute or chronic, without hemorrhage or perforation; B95.2 Enterococcus as the cause of diseases classified elsewhere; R06.00 Dyspnea, unspecified; Z82.49 Family history of ischemic heart disease and other diseases of the circulatory system; Z83.3 Family history of diabetes mellitus; Z91.048 Other nonmedicinal substance allergy status; Z72.89 Other problems related to lifestyle; Z87.442 Personal history of urinary calculi
CPT/HCPCS: 36415; 71010; 74176; 76770; 76775; 78226; 80048; 80053; 81003; 81015; 83605; 83735; 83880; 84484; 85025; 85384; 85610; 85730; 86140; 87040; 87077; 87086; 87150; 87186; 87205; 87502; 87641; 88304; 94760; 99285; A9270-GY; A9537; J0696; J1580; J1644; J1885; J2250; J2270; J2405; J2543; J2704; J3010; J3370; J3475; J3480